=== PATIENT | female | born 1950 | race Caucasian/White ===

== ENCOUNTER → 2016-12-12 09:39 | Outpatient (CLI) | payer MEDICARE, BC ==
[2012-09-08 06:20] VITALS: BMI 22.4
== END | disposition home or self-care (01) ==
LOC: D.MRI 09:39
DX: M75.41 Impingement syndrome of right shoulder (principal)

== ENCOUNTER → 2017-01-14 18:12 | Outpatient (CLI) | payer MEDICARE, BC ==
[2012-09-08 06:20] VITALS: BMI 22.4
== END | disposition home or self-care (01) ==
LOC: D.MAMMO 14:15
DX: Z12.31 Encounter for screening mammogram for malignant neoplasm of breast (principal)

== ENCOUNTER 2017-02-22 10:00 | Outpatient (CLI) | payer MEDICARE, BC ==
[2012-09-08 06:20] VITALS: BMI 22.4
== END 2017-02-22 23:59 | disposition home or self-care (01) ==
LOC: D.MAMMO 10:00
DX: R92.8 Other abnormal and inconclusive findings on diagnostic imaging of breast (principal)

== ENCOUNTER 2019-06-05 12:51 | Outpatient (CLI) | payer MEDICARE, BC ==
[2012-09-08 06:20] VITALS: BMI 22.4
== END 2019-06-05 23:59 | disposition home or self-care (01) ==
LOC: D.MAMMO 12:51
PROVIDERS: ATTEND Family Medicine
DX: Z12.31 Encounter for screening mammogram for malignant neoplasm of breast (principal)